=== PATIENT | male | born 1980 | race Caucasian/White ===

== ENCOUNTER 2017-10-12 16:52 | Emergency (ER) | payer BC ==
[~2017-10-12] VITALS: Ht 180.3 cm; Wt 92.5 kg
[2017-10-12 17:11] VITALS: BP 126/76; PULSE 87; RESP 16; TEMP 97.6; O2SAT 96
[2017-10-12] MEDS ORDERED: ASPI81CH6 CHEW (17:32)
[2017-10-12] MEDS ORDERED: LORA-474 PO (17:32)
[2017-10-12] MEDS ORDERED: SIMV20TA PO (17:32)
[2017-10-12] MEDS ORDERED: PLAV75TA29 PO (17:32)
[2017-10-12] MEDS ORDERED: LEVE500 (17:32)
[2017-10-12] MEDS ORDERED: VIIB40TA PO (17:32)
[2017-10-12] MEDS ORDERED: SODIUM CHLOR 0.9% 1000 ML INJ 1,000 ML IV ONE (17:45)
[2017-10-12] MEDS ORDERED: SODIUM CHLORIDE 0.9% FLUSH 10 ML FLUSH IVF PRN (17:45)
--- NOTE | 2017-10-12 17:49 | PD ---
HPI Chief Complaint: Seizure Time Seen by Provider: 17:00 Travel History International Travel<30 days: No Contact w/Intl Traveler<30days: No Traveled to known affect area: No History of Present Illness HPI The patient is a 36-year-old male who presents to the emergency department via EMS after possible syncopal episode. The patient is currently visiting from [place], was at a restaurant earlier today, getting ready to eat, when he had a syncopal episode. The patient states that he passed out, while sitting down for dinner. The patient states he got diaphoretic just prior to passing out. The patient thinks he passed out because he had been out in the sun and did not have much to eat or drink today. He denies any history of previous syncopal episodes. He does have a previous history of stroke with a seizure that occurred shortly after the stroke. The patient was placed on Keppra and have been weaning his Keppra dose according to the . The patient did not have any tonic-clonic activity according to the . He states when he woke up he knew where he was within 2 minutes. He denied any biting of his tongue or urinary incontinence. 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 He denies any known history of arrhythmias and states he had a Holter monitor done at the time of stroke which was negative. The patient currently denies any symptoms except for being hungry. PFSH Past Medical History Cardiovascular Problems: Yes (pericardial effusion) Cerebrovascular Accident: Yes Diminished Hearing: No Seizures: Yes Influenza Vaccination: No ?: Not Past Surgical History Cardiac Surgery: Yes (pericardial window 2007) Oral Surgery: Yes (wisdom teeth) Social History Alcohol Use: No Tobacco Use: Yes (Vape pen) Substance Use: No Allergies-Medications (Allergen,Severity, Reaction): Coded Allergies: No Known Allergies (Unverified , 10/12/17) Reported Meds & Prescriptions Reported Meds & Active Scripts Active Reported Ativan (Lorazepam) 1 Mg Tab 1 Mg PO Q8H PRN Keppra (Levetiracetam) 500 Mg Tab 500 Mg BID Viibryd (Vilazodone) 40 Mg Tab 40 Mg PO DAILY Simvastatin 20 Mg Tab 20 Mg PO DAILY Aspirin Low Dose (Aspirin) 81 Mg Chew 81 Mg CHEW DAILY Plavix (Clopidogrel Bisulfate) 75 Mg Tab 75 Mg PO DAILY Review of Systems Except as stated in HPI: all other systems reviewed are Neg General / Constitutional: No: Fever HENT: Positive: Lightheadedness Cardiovascular: Positive: Diaphoresis, Syncope, No: Chest Pain or Discomfort, Palpitations, Irregular Rhythm, Tachycardia Respiratory: No: Shortness of Breath Gastrointestinal: No: Nausea, Vomiting, Abdominal Pain Neurologic: Positive: Seizures (1 seizure after stroke), Sensory Disturbance, No: Headache, Slurred Speech, Paresthesia Physical Exam Narrative GENERAL: Awake, alert, pleasant 36-year-old male who appears his stated age and is in no acute respiratory distress. SKIN: Focused skin assessment warm/dry. HEAD: Atraumatic. Normocephalic. EYES: Pupils equal and round. 4 mm bilateral and reactive. EOMs are intact. ENT: No nasal bleeding or discharge. Mucous membranes pink and moist. NECK: Trachea midline. No JVD. CARDIOVASCULAR: Regular rate and rhythm. No murmur appreciated. RESPIRATORY: No accessory muscle use. Clear to auscultation. Breath sounds equal bilaterally. GASTROINTESTINAL: Abdomen soft, non-tender, nondistended. MUSCULOSKELETAL: No obvious deformities. No clubbing. No cyanosis. No edema. NEUROLOGICAL: Awake and alert. No obvious cranial nerve deficits. Motor grossly within normal limits. Normal speech. Oriented 4. Follows commands without difficulty. PSYCHIATRIC: Appropriate mood and affect; insight and judgment normal. Data Data Last Documented VS Vital Signs Date Time Temp Pulse Resp B/P (MAP) Pulse Ox O2 Delivery O2 Flow Rate FiO2 10/12/17 18:41 84 12 122/68 (86) 80 12 116/70 (85) 87 12 118/67 (84) 10/12/17 18:23 96 Room Air 10/12/17 17:11 97.6 Orders Orders Electrocardiogram (10/12/17 17:45) Complete Blood Count With Diff (10/12/17 17:45) Comprehensive Metabolic Panel (10/12/17 17:45) Magnesium (Mg) (10/12/17 17:45) Ecg Monitoring (10/12/17 17:45) Iv Access Insert/Monitor (10/12/17 17:45) Oximetry (10/12/17 17:45) Sodium Chloride 0.9% Flush (Ns Flush) (10/12/17 17:45) Sodium Chlor 0.9% 1000 Ml Inj (Ns 1000 M (10/12/17 17:45) Orthostatic Vital Signs (10/12/17 17:45) Diet Regular Basic (10/12/17 Dinner) Labs Laboratory Tests Test 10/12/17 18:20 White Blood Count 6.3 TH/MM3 Red Blood Count 5.03 MIL/MM3 Hemoglobin 16.1 GM/DL Hematocrit 47.0 % Mean Corpuscular Volume 93.4 FL Mean Corpuscular Hemoglobin 32.0 PG Mean Corpuscular Hemoglobin Concent 34.2 % Red Cell Distribution Width 11.7 % Platelet Count 191 TH/MM3 Mean Platelet Volume 7.7 FL Neutrophils (%) (Auto) 75.0 % Lymphocytes (%) (Auto) 15.0 % Monocytes (%) (Auto) 4.9 % Eosinophils (%) (Auto) 0.8 % Basophils (%) (Auto) 4.3 % Neutrophils # (Auto) 4.7 TH/MM3 Lymphocytes # (Auto) 0.9 TH/MM3 Monocytes # (Auto) 0.3 TH/MM3 Eosinophils # (Auto) 0.1 TH/MM3 Basophils # (Auto) 0.3 TH/MM3 CBC Comment DIFF FINAL Differential Comment Blood Urea Nitrogen 10 MG/DL Creatinine 1.40 MG/DL Random Glucose 95 MG/DL Total Protein 7.0 GM/DL Albumin 4.3 GM/DL Calcium Level 8.8 MG/DL Magnesium Level 1.8 MG/DL Alkaline Phosphatase 54 U/L Aspartate Amino Transf (AST/SGOT) 23 U/L Alanine Aminotransferase (ALT/SGPT) 26 U/L Total Bilirubin 0.7 MG/DL Sodium Level 138 MEQ/L Potassium Level 4.1 MEQ/L Chloride Level 104 MEQ/L Carbon Dioxide Level 29.0 MEQ/L Anion Gap 5 MEQ/L Estimat Glomerular Filtration Rate 58 ML/MIN MDM Medical Decision Making Medical Screen Exam Complete: Yes Emergency Medical Condition: Yes Medical Record Reviewed: Yes Interpretation(s) EKG reveals normal sinus rhythm with a rate of 74. No ischemic changes noted. No evidence of WPW or Brugada syndrome. Laboratory Tests Test 10/12/17 18:20 White Blood Count 6.3 TH/MM3 Red Blood Count 5.03 MIL/MM3 Hemoglobin 16.1 GM/DL Hematocrit 47.0 % Mean Corpuscular Volume 93.4 FL Mean Corpuscular Hemoglobin 32.0 PG Mean Corpuscular Hemoglobin Concent 34.2 % Red Cell Distribution Width 11.7 % Platelet Count 191 TH/MM3 Mean Platelet Volume 7.7 FL Neutrophils (%) (Auto) 75.0 % Lymphocytes (%) (Auto) 15.0 % Monocytes (%) (Auto) 4.9 % Eosinophils (%) (Auto) 0.8 % Basophils (%) (Auto) 4.3 % Neutrophils # (Auto) 4.7 TH/MM3 Lymphocytes # (Auto) 0.9 TH/MM3 Monocytes # (Auto) 0.3 TH/MM3 Eosinophils # (Auto) 0.1 TH/MM3 Basophils # (Auto) 0.3 TH/MM3 CBC Comment DIFF FINAL Differential Comment Blood Urea Nitrogen 10 MG/DL Creatinine 1.40 MG/DL Random Glucose 95 MG/DL Total Protein 7.0 GM/DL Albumin 4.3 GM/DL Calcium Level 8.8 MG/DL Magnesium Level 1.8 MG/DL Alkaline Phosphatase 54 U/L Aspartate Amino Transf (AST/SGOT) 23 U/L Alanine Aminotransferase (ALT/SGPT) 26 U/L Total Bilirubin 0.7 MG/DL Sodium Level 138 MEQ/L Potassium Level 4.1 MEQ/L Chloride Level 104 MEQ/L Carbon Dioxide Level 29.0 MEQ/L Anion Gap 5 MEQ/L Estimat Glomerular Filtration Rate 58 ML/MIN Differential Diagnosis Differential diagnosis includes vasovagal syncope, cardiogenic syncope, arrhythmia, electrolyte abnormality, hypoglycemia, dehydration, orthostatic hypotension, seizure. Narrative Course IV was established, labs are drawn and sent, and the patient was placed on cardiac telemetry monitoring and continuous pulse oximetry monitoring. EKG was ordered and interpreted. Orthostatic vital signs were obtained. The patient was administered 1 L of IV fluids. The patient's creatinine is mildly elevated at 1.4. Otherwise labs are unremarkable. No evidence of ectopy on telemetry monitoring. The patient recently had a stroke and had a Holter monitor and echocardiogram at that time. No evidence of seizure activity in the emergency department. The patient will be discharged home, is advised to follow-up with his primary physician upon return to [place]. He is advised to drive for 24 hours. He is also advised to drink plenty fluids to stay hydrated. He will be provided a copy of his laboratory evaluation at discharge. The patient was reevaluated at 7 PM, symptoms have significantly improved. Diagnosis Primary Impression: Syncope Qualified Codes: R55 - Syncope and collapse Patient Instructions: General Instructions Additional Instructions: Please provide the patient a copy of his labs and EKG at discharge. Follow-up with your primary physician. Plenty fluids to stay hydrated. Return if symptoms worsen or progress. Med/Other Pt SpecificInfo: No Change to Meds Disposition: 01 DISCHARGE HOME Condition: Stable Joo Lowe MD October 12, 2017 17:49
[2017-10-12 18:23] VITALS: O2SAT 96
[2017-10-12 18:28] LABS: AUTOMATED NEUTROPHIL # 4.7 TH/MM3 (1.8-7.7); BASOPHIL # 0.3 TH/MM3 (0-0.2); BASOPHIL % 4.3 % (0.0-2.0); EOSINOPHIL # 0.1 TH/MM3 (0-0.4); EOSINOPHIL % 0.8 % (0.0-4.0); HEMOGLOBIN 16.1 GM/DL (13.0-17.0); LYMPHOCYTE # 0.9 TH/MM3 (1.0-4.8); MEAN CELL VOLUME 93.4 FL (80.0-100.0); MEAN CORPUSCULAR HGB CONC 34.2 % (32.0-36.0); MEAN PLATELET VOLUME 7.7 FL (7.0-11.0); MONO % 4.9 % (0.0-8.0); MONOCYTE # 0.3 TH/MM3 (0-0.9); PLATELET COUNT 191 TH/MM3 (150-450); RED BLOOD COUNT 5.03 MIL/MM3 (4.50-5.90); RED CELL DISTRIBUTION WIDTH 11.7 % (11.6-17.2); WHITE BLOOD COUNT 6.3 TH/MM3 (4.0-11.0)
[2017-10-12 18:34] LABS: CHLORIDE 104 MEQ/L (98-107); SODIUM (NA) 138 MEQ/L (136-145)
[2017-10-12 18:37] LABS: CALCIUM 8.8 MG/DL (8.5-10.1)
[2017-10-12 18:38] LABS: ALBUMIN 4.3 GM/DL (3.4-5.0); BLOOD UREA NITROGEN 10 MG/DL (7-18); GLUCOSE,RANDOM 95 MG/DL (74-106); MAGNESIUM 1.8 MG/DL (1.5-2.5)
[2017-10-12 18:40] VITALS: BP 112/68; RESP 12
[2017-10-12 18:41] VITALS: BP_SYST 116; BP_SYST 118; BP_SYST 122; BP_DIAS 67; BP_DIAS 68; BP_DIAS 70; RESP 12
[2017-10-12 18:41] LABS: ALT (GPT) 26 U/L (12-78); AST (GOT) 23 U/L (15-37); GLOMERULAR FILTRATION RATE 58 ML/MIN (>89)
[2017-10-12 18:42] LABS: TOTAL BILIRUBIN ADULT 0.7 MG/DL (0.2-1.0)
[2017-10-12 18:44] LABS: ALKALINE PHOSPHATASE 54 U/L (45-117)
[2017-10-12 19:00] VITALS: BP 118/77; PULSE 89; RESP 14; O2SAT 97
--- NOTE | 2017-10-13 14:00 | EKG ---
Date Performed: 10/12/2017 Time Performed: 18:02:41 PTAGE: 36 years EKG: Sinus rhythm NORMAL ECG NO PREVIOUS TRACING DOCTOR: Candelario Coleman Interpretating Date/Time 10/13/2017 13:58:45
== END 2017-10-12 19:40 | disposition home or self-care (01) ==
LOC: PHED 16:52
DX: R55 Syncope and collapse (principal); Z86.73 Personal history of transient ischemic attack (TIA), and cerebral infarction without residual deficits; F17.290 Nicotine dependence, other tobacco product, uncomplicated
CPT/HCPCS: 80053; 83735; 85025; 93005; 96360; 99284; J7030